=== PATIENT | female | born 1990 | race Hispanic/Latino ===

== ENCOUNTER 2018-03-07 06:01 | Inpatient (IN) | payer MEDICAID, OTHER ==
[~2018-03-07] VITALS: Ht 149.9 cm; Wt 73.5 kg
[2018-03-07] MEDS ORDERED: LACTATED RINGERS 1000ML 1,000 ML IV PRN (06:19)
[2018-03-07] MEDS ORDERED: AMPICILLIN 2GM+NS 100ML 100 ML IV SCH (06:30)
[2018-03-07] MEDS ORDERED: AMPICILLIN 2GM+NS 100ML 100 ML IV ONE (06:42)
[2018-03-07 06:45] LABS: HEMATOCRIT 31.7 % (36-48); MEAN CORPUSCULAR HEMOGLOBIN 25.8 pg (27.0-33.0); MEAN CORPUSCULAR HGB CONC 33.6 g/dL (32.0-36.0); MEAN CORPUSCULAR VOLUME 76.9 fL (79-99); PLATELET COUNT (AUTO) 253 K/uL (130-400); RED BLOOD CELL COUNT(AUTO) 4.13 MIL/uL (4.00-5.50); RED CELL DISTRIBUTION WIDTH 14.8 % (11.0-15.5); WHITE BLOOD COUNT (AUTO) 12.9 K/uL (4.8-10.8)
[2018-03-07 06:57] LABS: APPEARANCE,URINE Cloudy (CLEAR); BILIRUBIN,URINE Negative (NEGATIVE); COLOR,URINE Yellow (YELLOW); GLUCOSE, URINE (UA) Negative (NEGATIVE); KETONES,URINE Negative (NEGATIVE); LEUKOCYTE ESTERASE ,URINE Large (NEGATIVE); NITRATE,URINE Negative (NEGATIVE); OCCULT BLOOD,URINE Trace (NEGATIVE); PROTEIN,URINE POS 1+ (NEGATIVE)
[2018-03-07 07:02] LABS: AMPHET/METH SCREEN,URINE NEGATIVE (NEGATIVE); BARBITURATE SCREEN, URINE NEGATIVE (NEGATIVE); BENZODIAZEPINES SCREEN,URINE NEGATIVE (NEGATIVE); CANNABINOID SCREEN,URINE NEGATIVE (NEGATIVE); COCAINE SCREEN,URINE NEGATIVE (NEGATIVE); OPIATE SCREEN,URINE NEGATIVE (NEGATIVE); PHENCYCLIDINE SCREEN,URINE NEGATIVE (NEGATIVE)
[2018-03-07] MEDS ORDERED: MEPERIDINE-PF 25 MG/ML SYG IVP SCH (07:15)
[2018-03-07] MEDS ORDERED: PROMETHAZINE HCL 25 MG/ML 1ML AMPULE IM SCH (07:15)
[2018-03-07 07:31] LABS: BACTERIA,URINE Moderate /HPF (None Seen)
[2018-03-07 07:32] LABS: RBC,URINE 0-1 /HPF (0-1); SQUAMOUS EPITHELIAL CELL,UR 30-50 /HPF (0-2)
[2018-03-07] MEDS ORDERED: OXYTOCIN 10 USP UNITS/ML 20 UNIT in LACTATED RINGERS 1000ML 1,000 ML IV SCH (10:15)
[2018-03-07 10:42] LABS: RAPID PLASMA REAGIN NONREACTIVE (NONREACTIVE)
[2018-03-07] MEDS ORDERED: CEFAZOLIN SODIUM 1 GM VIAL IVP ONE (10:57)
[2018-03-07] MEDS ORDERED: OXYTOCIN 10 UNIT/1ML 10ML VIAL ONE (11:07)
[2018-03-07] MEDS ORDERED: OXYTOCIN 10 USP UNITS/ML ONE (11:09)
[2018-03-07] MEDS ORDERED: SENSORCAINE/DEXT/PF 0.75% 2ML AMP IJ ONE (11:11)
[2018-03-07] MEDS ORDERED: CEFAZOLIN SODIUM 1 GM VIAL ONE (11:12)
[2018-03-07] MEDS ORDERED: DURAMORPH PF1 MG/ML 10ML AMP IV ONE ×2 (11:12→11:27)
[2018-03-07] MEDS ORDERED: MIDAZOLAM HCL 1 MG/ML 2ML VIAL ONE (11:14)
[2018-03-07] MEDS ORDERED: METHYLERGONOVINE MALEATE 0.2 MG/1 ML ML ONE (11:35)
[2018-03-07] MEDS ORDERED: OXYTOCIN-LR 20 UNITS/1000 ML 1,000 ML IV PRN (11:41)
[2018-03-07] MEDS ORDERED: BISACODYL 10 MG SUPP.RECT RC PRN (11:45)
[2018-03-07] MEDS ORDERED: SODIUM CHLORIDE 0.9% 10 ML VIAL IVP PRN (11:45)
[2018-03-07] MEDS ORDERED: HYDROCODONE/ACETAMINOPHEN 5/325 MG TAB PO PRN ×4 (11:45→16:15)
[2018-03-07] MEDS ORDERED: DIPH,PERTUSS(ACELL),TET VAC/PF 0.5 ML VIAL IM SCH (11:45)
[2018-03-07] MEDS ORDERED: ACETAMINOPHEN-CODEINE 300/30MG TAB PO PRN (11:45)
[2018-03-07] MEDS ORDERED: ACETAMINOPHEN EXTRA STRENGTH 500 MG TABLET PO PRN (11:45)
[2018-03-07] MEDS ORDERED: LANOLIN 30GM OINTMENT TP PRN (11:45)
[2018-03-07] MEDS ORDERED: DIPHENHYDRAMINE HCL 25 MG CAPSULE PO PRN (11:45)
[2018-03-07] MEDS ORDERED: MEPERIDINE-PF 75 MG/ML SYG IM PRN (11:45)
[2018-03-07] MEDS ORDERED: PROMETHAZINE HCL 25 MG/ML 1ML AMPULE IM PRN ×2 (11:45→16:15)
[2018-03-07] MEDS ORDERED: EPHEDRINE SULFATE 50 MG/ML AMPULE ONE (11:50)
[2018-03-07 13:38] VITALS: BP 141/97
[2018-03-07 15:41] VITALS: BP 132/85
[2018-03-07] MEDS ORDERED: ONDANSETRON HCL 4 MG/2 ML VIAL ONE (15:42)
[2018-03-07] MEDS ORDERED: METOCLOPRAMIDE 10 MG/2 ML VIAL IVP PRN (16:15)
[2018-03-07] MEDS ORDERED: MORPHINE SULFATE 2 MG/ML 1ML SYG IVP PRN (16:15)
[2018-03-07] MEDS ORDERED: NALOXONE HCL 0.4 MG/1 ML ML IVP PRN ×2 (16:15)
[2018-03-07] MEDS ORDERED: ONDANSETRON HCL 4 MG/2 ML VIAL IVP PRN ×2 (16:15)
[2018-03-07] MEDS ORDERED: DiphenhydrAMINE HCL 50 MG/ML VIAL IVP PRN (16:15)
[2018-03-07] MEDS ORDERED: ONDANSETRON HCL MDV 20ML 2 MG/ML VIAL IVP PRN ×2 (16:15)
[2018-03-07] MEDS ORDERED: EPHEDRINE SULFATE 50 MG/ML AMPULE IVP PRN (16:15)
[2018-03-07] MEDS ORDERED: ONDANSETRON HCL 4 MG/2 ML 8 MG in SODIUM CHLORIDE 0.9% 50 ML IVP NR (16:15)
[2018-03-07 19:27] VITALS: BP 124/76
[2018-03-07] MEDS: CALDOLOR 800MG+NS 250ML 250 ML IV SCH (19:43)
[2018-03-07] MEDS: DEXTROSE 5 %-0.45 % NACL 1,000 ML IV PRN (19:45)
[2018-03-07] MEDS: SIMETHICONE 80 MG TAB.CHEW PO PRN (21:14)
[2018-03-07] MEDS: DOCUSATE SODIUM 100 MG CAP PO SCH (21:14)
[2018-03-07 23:19] VITALS: BP 95/64
[2018-03-08] MEDS: CALDOLOR 800MG+NS 250ML 250 ML IV SCH (03:26)
[2018-03-08 03:29] VITALS: BP 119/72
[2018-03-08] MEDS: DEXTROSE 5 %-0.45 % NACL 1,000 ML IV PRN (03:44)
[2018-03-08 06:41] LABS: HEMATOCRIT 23.3 % (36-48); MEAN CORPUSCULAR HEMOGLOBIN 24.9 pg (27.0-33.0); MEAN CORPUSCULAR HGB CONC 32.3 g/dL (32.0-36.0); PLATELET COUNT (AUTO) 214 K/uL (130-400); RED BLOOD CELL COUNT(AUTO) 3.03 MIL/uL (4.00-5.50); RED CELL DISTRIBUTION WIDTH 14.9 % (11.0-15.5); WHITE BLOOD COUNT (AUTO) 14.5 K/uL (4.8-10.8)
[2018-03-08 07:19] VITALS: BP 95/52
[2018-03-08 08:20] LABS: HEPATITIS Bs ANTIGEN SCREEN P Negative (Negative)
[2018-03-08] MEDS: LIDOCAINE 5% TOPICAL PATCH TP SCH (08:27)
[2018-03-08] MEDS: DOCUSATE SODIUM 100 MG CAP PO SCH ×2 (08:27→21:50)
[2018-03-08] MEDS: SIMETHICONE 80 MG TAB.CHEW PO PRN ×3 (08:27→21:50)
[2018-03-08] MEDS: MEASLES/MUMPS/RUBELLA VACCINE, LIVE 0.5 ML/VIAL SQ SCH ×2 (11:45→23:51)
[2018-03-08 11:51] VITALS: BP 119/66
[2018-03-08] MEDS: IBUPROFEN 800 MG TAB PO SCH ×2 (12:05→19:54)
[2018-03-08 15:44] VITALS: BP 126/53
[2018-03-08] MEDS ORDERED: ONDANSETRON HCL MDV 20ML 2 MG/ML VIAL IVP PRN (18:45)
[2018-03-08] MEDS ORDERED: SODIUM CHLORIDE 0.9% 1000ML 1,000 ML IV SCH (18:45)
[2018-03-08] MEDS ORDERED: ACETAMINOPHEN-CODEINE 300/30MG TAB PO PRN (18:45)
[2018-03-08] MEDS ORDERED: ACETAMINOPHEN 325 MG TAB PO PRN (18:45)
[2018-03-08] MEDS ORDERED: AMOXICILLIN/POTASSIUM CLAV 500-125 TABLET PO SCH (18:45)
[2018-03-08 20:06] VITALS: BP 138/78
[2018-03-08 23:43] VITALS: BP 128/73
[2018-03-09 00:02] VITALS: BP 101/59
[2018-03-09] MEDS ORDERED: ACETAMINOPHEN EXTRA STRENGTH 500 MG TABLET PO PRN (00:45)
[2018-03-09] MEDS: IBUPROFEN 800 MG TAB PO SCH ×2 (03:38→11:39)
[2018-03-09 03:45] VITALS: BP 136/80
[2018-03-09 07:55] VITALS: BP 132/95
[2018-03-09] MEDS ORDERED: AMOXICILLIN/POTASSIUM CLAV 500-125 TABLET PO SCH (08:00)
[2018-03-09] MEDS: DOCUSATE SODIUM 100 MG CAP PO SCH (09:20)
[2018-03-09] MEDS: SIMETHICONE 80 MG TAB.CHEW PO PRN (09:20)
[2018-03-09] MEDS: LIDOCAINE 5% TOPICAL PATCH TP SCH (09:20)
[2018-03-09 11:32] VITALS: BP 137/54
[2018-03-09] MEDS: MEASLES/MUMPS/RUBELLA VACCINE, LIVE 0.5 ML/VIAL SQ SCH (11:45)
== END 2018-03-09 12:15 | disposition home or self-care (01) | DRG 766 ==
LOC: EDH 06:01 → LDH 06:02 → OBSVTOIN 06:02 → WSH 13:30
PROC: 3E0234Z Introduction of Serum, Toxoid and Vaccine into Muscle, Percutaneous Approach (ICD-10-PCS; 2018-03-07)
PROC: 3E0134Z Introduction of Serum, Toxoid and Vaccine into Subcutaneous Tissue, Percutaneous Approach (ICD-10-PCS; 2018-03-07)
PROC: 10D00Z1 Extraction of Products of Conception, Low, Open Approach (ICD-10-PCS; principal; 2018-03-07 10:55)
DX: O62.0 Primary inadequate contractions (principal); D64.9 Anemia, unspecified; O62.2 Other uterine inertia; O99.02 Anemia complicating childbirth; O09.33 Supervision of pregnancy with insufficient antenatal care, third trimester; Z37.0 Single live birth; Z3A.39 39 weeks gestation of pregnancy; Z23 Encounter for immunization
CPT/HCPCS: 36415; 59510; 80305; 81001; 85027; 86592; 86701; 86850; 86900; 86901; 87340; 87390; 90707; A4344; A4606; J0290; J0690; J1741; J2175; J2210; J2250; J2274; J2405; J2550; J2590; J3490; J7120